=== PATIENT | female | born 1955 | race Caucasian/White ===

== ENCOUNTER → 2017-06-20 | Outpatient (REF) | payer OTHER ==
[~2017-06-20] MED LIST: ATOR80TA59 PO; ELIQ5TAB PO; LEVO75TA4 PO; LEXA1TAB2 PO; METH2.5TA PO; PREV1CAP PO
== END ==
LOC: M LAB REF 15:38
PROVIDERS: ATTEND Nurse Practitioner Adult Health
DX: R19.7 Diarrhea, unspecified (principal)

== ENCOUNTER → 2019-10-06 | Outpatient (CLI) | payer OTHER ==
[~2019-10-06] MED LIST changes: +ASPI81TA26 PO; +METH2.5T48 PO; -METH2.5TA PO; +METO1TAB87 PO
--- NOTE | 2019-10-06 17:39 | REP ---
RENAL ULTRASOUND: Real-time sonographic evaluation of the kidneys performed. The kidneys are normal in size but demonstrate cortical thinning and somewhat increased echotexture suggesting medical renal disease. Right kidney measures 10.1 x 4.6 x 4.4 cm and left kidney 10.5 x 4.5 x 4.8 cm. There is no hydronephrosis bilaterally. No renal mass or definite stone is seen. There are bilateral ureteral jets in the urinary bladder with Doppler color evaluation. IMPRESSION: Bilateral cortical thinning and probable medical renal disease. No hydronephrosis. Electronically Signed by Jeremy Morales MD 10/07/2019 09:58 A
== END ==
LOC: M RAD 16:51
PROVIDERS: ATTEND Internal Medicine Nephrology
DX: N18.3 Chronic kidney disease, stage 3 (moderate) (principal)

== ENCOUNTER → 2020-04-28 | Outpatient (REF) | payer MEDICARE, BC ==
[2020-04-28 15:04] LABS: AMORPHOUS SEDIMENT SMALL (NEGATIVE); APPEARANCE, URINE TURBID (CLEAR); BACTERIA, URINE AUTO NEGATIVE (NEGATIVE); BILIRUBIN, URINE AUTO NEGATIVE (NEGATIVE); BLOOD, URINE BLOOD 3+ (NEGATIVE); COLOR, URINE YELLOW (YELLOW); GLUCOSE, URINE (UA) AUTO NEGATIVE (NEGATIVE); KETONE, URINE AUTO NEGATIVE (NEGATIVE); LEUKOCYTE ESTERASE, URINE AUTO 2+ (NEGATIVE); MUCUS, URINE SMALL (NEGATIVE); NITRITE, URINE AUTO NEGATIVE (NEGATIVE); PROTEIN, URINE AUTO NEGATIVE (NEGATIVE); RBC, URINE AUTO 2 /HPF (0-3); SPECIFIC GRAVITY URINE AUTO 1.024 (1.002-1.035); SQUAMOUS EPITHELIAL CELL UR AU 7 /HPF (0-6); UROBILINOGEN, URINE AUTO 0.2 mg/dL (0.0-2.0); WBC, URINE AUTO 4 /HPF (0-3)
== END ==
LOC: M SMT 14:40
PROVIDERS: ATTEND Nurse Practitioner Women's Health
DX: R31.29 Other microscopic hematuria (principal)

== ENCOUNTER → 2020-05-20 | Outpatient (REF) | payer MEDICARE, BC, OTHER | LOC: M SMT 17:58 | PROVIDERS: ATTEND Urology | DX: N32.9 Bladder disorder, unspecified (principal) ==

== ENCOUNTER → 2021-06-14 | Outpatient (REF) | payer MEDICARE, OTHER, BC ==
[2021-06-15 12:58] LABS: PERCENT SATURATION 5.9 % (13.2-45.0)
== END ==
LOC: M LAB REF 11:49
PROVIDERS: ATTEND Internal Medicine
DX: D64.9 Anemia, unspecified (principal)

== ENCOUNTER → 2021-07-06 | Outpatient (REF) | payer MEDICARE, OTHER, BC | LOC: M LAB REF 09:55 | PROVIDERS: ATTEND Nurse Practitioner Adult Health | DX: D50.9 Iron deficiency anemia, unspecified (principal) ==

== ENCOUNTER → 2021-09-13 | Outpatient (CLI) | payer MEDICARE, OTHER ==
[~2021-09-13] MED LIST changes: +ISOVUE-370 76% 100ML VIAL ONE
--- NOTE | 2021-09-13 11:45 | REP ---
INDICATION: F/U PULMONARY NODULE. COMPARISON: 09/13/2020, 10/30/2018 CT TECHNIQUE: Pre and post contrast scanning through the chest with coronal and sagittal reconstructions provided. Bolus of 100 mL Isovue 370 given. FINDINGS: Lung doll show some minor apical fibrotic changes with some underlying COPD. Also some stable basilar peripheral fibrotic change. Pattern of few scattered small peripheral pulmonary nodules without calcification is again seen and unchanged there are no new nodules or further enlargement of any of the current nodules. There is no parenchymal mass, pleural based mass, calcified pleural plaque, effusion or acute infiltrate. The heart is not enlarged. No pericardial thickening or effusion. The left atrium is prominent. There are some calcifications in coronary arteries. Calcifications of the aortic valve plane and in the ascending, arch and descending aorta again seen, unchanged. Prominent central pulmonary arteries in the mediastinum and without filling defects, stable. No pathologic sized mediastinal, hilar, axillary or supraclavicular adenopathy. Upper abdominal structures unchanged. Some sinus lipomatosis, lobation upper lobes and adrenal glands visualized portions of liver, spleen and pancreas are unremarkable. No hiatal hernia. The bone windows show no new or acute findings. IMPRESSION: 1. Stable CT of the chest with multiple pulmonary nodules and no interval change in number or size nor new findings. The history of the malignancy of the throat puts this patient at higher risk for development of lung malignancy. Annual CT lung screening is warranted. <Electronically signed by Kennedy Hernandez > 09/13/21 [id number]
== END ==
LOC: M PLAIMG 09:28
PROVIDERS: ATTEND Nurse Practitioner Adult Health
DX: R91.1 Solitary pulmonary nodule (principal)
CPT/HCPCS: 71270; Q9967

== ENCOUNTER → 2021-10-04 | Outpatient (CLI) | payer MEDICARE, OTHER ==
[~2021-10-04] MED LIST changes: +FERR325T3 PO; -ISOVUE-370 76% 100ML VIAL ONE; +MAGN200T PO; +METO1TAB7 PO
== END ==
LOC: M LABSMTC 10:38
PROVIDERS: ATTEND Anesthesiology
DX: Z01.812 Encounter for preprocedural laboratory examination (principal); Z20.822 Contact with and (suspected) exposure to COVID-19

== ENCOUNTER 2021-10-09 09:15 | Day surgery (SDC) | payer MEDICARE, OTHER ==
[~2021-10-09] VITALS: Ht 165.1 cm; Wt 66.7 kg
[~2021-10-09 09:15] MED LIST changes: +NS 1,000 ML IV ONE
[2021-10-09] MEDS ORDERED: METOPROLOL SUCC *XL* 25MG TAB (TopROL *XL*) PO ONE (10:00)
[2021-10-09 10:03] VITALS: BP 190/105
[2021-10-09] MEDS ORDERED: propofoL 200 MG/20 ML VIAL As Ordered ONE ×2 (11:38→11:40)
[2021-10-09] MEDS ORDERED: LIDOCAINE 2% 100MG/5ML SDV (FOR ANES.) As Ordered ONE (11:40)
[2021-10-09 12:22] VITALS: BP 123/85
== END 2021-10-09 12:36 | disposition home or self-care (01) ==
LOC: M OPP 09:15
PROVIDERS: ATTEND Internal Medicine Gastroenterology
DX: K57.30 Diverticulosis of large intestine without perforation or abscess without bleeding (principal); K64.0 First degree hemorrhoids; D50.9 Iron deficiency anemia, unspecified; K22.89 Other specified disease of esophagus; K44.9 Diaphragmatic hernia without obstruction or gangrene; K31.89 Other diseases of stomach and duodenum; Z79.899 Other long term (current) drug therapy; Z95.3 Presence of xenogenic heart valve; F17.210 Nicotine dependence, cigarettes, uncomplicated; Z85.818 Personal history of malignant neoplasm of other sites of lip, oral cavity, and pharynx

== ENCOUNTER → 2022-03-21 | Outpatient (CLI) | payer MEDICARE, OTHER ==
[~2022-03-21] MED LIST changes: -NS 1,000 ML IV ONE
[2022-03-21 08:46] LABS: HEMATOCRIT 33.9 % (36.0-47.0); HEMOGLOBIN 10.7 g/dl (12.0-15.5); MEAN CORPUSCULAR HEMOGLOBIN 29.3 pg (27.0-33.0); MEAN CORPUSCULAR HGB CONC 31.6 g/dl (32.0-36.5); MEAN CORPUSCULAR VOLUME 92.9 fl (80.0-96.0); PLATELET COUNT, AUTOMATED 272 10^3/uL (150-450); RED BLOOD COUNT 3.65 10^6/uL (4.00-5.40); WHITE BLOOD COUNT 7.7 10^3/uL (4.0-10.0)
[2022-03-21 09:11] LABS: CALCIUM LEVEL 9.2 MG/DL (8.8-10.2); CREATININE FOR GFR 1.15 MG/DL (0.55-1.30); GLOMERULAR FILTRATION RATE 50.1 (>45); POTASSIUM SERUM 3.8 MEQ/L (3.5-5.1)
== END ==
LOC: M RAD 07:44
PROVIDERS: ATTEND Physician Assistant
DX: I50.9 Heart failure, unspecified (principal); R06.02 Shortness of breath

== ENCOUNTER → 2022-04-12 | Outpatient (REF) | payer MEDICARE, OTHER ==
[2022-04-12 18:39] LABS: PERCENT SATURATION 11.9 % (13.2-45.0)
== END ==
LOC: M LAB REF 17:09
PROVIDERS: ATTEND Internal Medicine Nephrology
DX: D50.9 Iron deficiency anemia, unspecified (principal)

== ENCOUNTER → 2022-07-11 | Outpatient (REF) | payer MEDICARE, OTHER ==
[2022-07-11 17:31] LABS: HEMATOCRIT 44.3 % (36.0-47.0)
[2022-07-11 18:16] LABS: PERCENT SATURATION 38.2 % (13.2-45.0)
== END ==
LOC: M LAB REF 16:16
PROVIDERS: ATTEND Nurse Practitioner Adult Health
DX: D50.9 Iron deficiency anemia, unspecified (principal)

== ENCOUNTER → 2022-08-14 | Outpatient (CLI) | payer MEDICARE, OTHER | LOC: M WUC 13:06 | PROVIDERS: ATTEND Nurse Practitioner Adult Health | DX: R06.02 Shortness of breath (principal) ==

== ENCOUNTER 2022-11-01 08:10 | Inpatient (IN) | payer MEDICARE, OTHER ==
[~2022-11-01] VITALS: Ht 162.6 cm; Wt 65.5 kg
[2022-11-01] MEDS ORDERED: CALC1CAP31 PO (08:24)
[2022-11-01] MEDS ORDERED: BUDE10.7 INH (08:24)
[2022-11-01] MEDS ORDERED: PRED20TA PO (08:24)
[2022-11-01] MEDS ORDERED: ALPR0.25 PO (08:24)
[2022-11-01] MEDS ORDERED: TORS20TA2 PO (08:24)
[2022-11-01] MEDS ORDERED: ALBU2.5V10 NEB (08:24)
[2022-11-01] MEDS: NICOTINE 7 MG/24 HR TRANSDERMAL TD SCH (09:00)
[2022-11-01] MEDS ORDERED: FUROSEMIDE 20MG/2ML VIAL IV ONE (09:40)
[2022-11-01 09:44] LABS: BASO # 0.1 10^3/uL (0.0-0.2); BASO % 0.4 % (0.0-1.0); EOS # 0.9 10^3/uL (0.0-0.5); EOS % 5.7 % (0.0-3.0); HEMATOCRIT 37.7 % (36.0-47.0); HEMOGLOBIN 11.8 g/dl (12.0-15.5); LYMPH # 2.5 10^3/uL (1.5-5.0); LYMPH % 15.8 % (24.0-44.0); MEAN CORPUSCULAR HEMOGLOBIN 28.3 pg (27.0-33.0); MEAN CORPUSCULAR HGB CONC 31.3 g/dl (32.0-36.5); MEAN CORPUSCULAR VOLUME 90.4 fl (80.0-96.0); MONO % 10.6 % (2.0-8.0); NEUTROPHILS # 10.7 10^3/uL (1.5-8.5); NEUTROPHILS % 66.6 % (36.0-66.0); PLATELET COUNT, AUTOMATED 198 10^3/uL (150-450); RED BLOOD COUNT 4.17 10^6/uL (4.00-5.40)
[2022-11-01 10:03] LABS: INR 1.09; PROTHROMBIN TIME 14.3 SECONDS (12.5-14.5)
[2022-11-01 10:13] LABS: CK-MB VALUE MASS 3.8 NG/ML (<3.6)
[2022-11-01 10:16] LABS: ALBUMIN 3.6 G/DL (3.2-5.2); BILIRUBIN,DIRECT 0.1 MG/DL (<0.4); BILIRUBIN,TOTAL 0.5 MG/DL (0.3-1.2); CREATININE FOR GFR 1.57 MG/DL (0.55-1.30); POTASSIUM SERUM 3.6 MMOL/L (3.5-5.1); TOTAL PROTEIN 6.3 G/DL (5.7-8.2)
[2022-11-01 10:17] LABS: RSV AMPLIFICATION NEGATIVE (NEGATIVE); THYROXINE (T4) 8.7 UG/DL (4.5-10.9)
[2022-11-01 10:18] LABS: THYROID STIMULATING HORMONE 1.641 uIU/ML (0.55-4.78)
[2022-11-01 10:19] LABS: MB/CK RELATIVE INDEX 2.99 (< OR =4)
[2022-11-01 10:39] LABS: MONO # 1.7 10^3/uL (0.0-0.8)
[2022-11-01] MEDS ORDERED: ISOVUE-370 76% 100ML VIAL As Ordered ONE (11:05)
[2022-11-01] MEDS ORDERED: methylPREDNISolone 125MG 2ML VIAL IV SCH (14:00)
[2022-11-01] MEDS ORDERED: ALBUTEROL 90 MCG/ACT 8GM HFA INHALER INH PRN (14:20)
[2022-11-01] MEDS ORDERED: ATOR40TA75 PO (14:29)
[2022-11-01] MEDS ORDERED: HOME MED LIST COMPLETE! XX SCH (14:30)
[2022-11-01] MEDS ORDERED: ALPRAZolam 0.25 MG TAB PO PRN (15:25)
[2022-11-01] MEDS ORDERED: MAGN400T2 PO (16:09)
[2022-11-01] MEDS: methylPREDNISolone 40MG 1ML VIAL IV SCH ×2 (16:36→21:24)
[2022-11-01] MEDS: MAGNESIUM OXIDE 400MG TAB (MAG-OX) PO SCH (16:36)
[2022-11-01] MEDS ORDERED: SODIUM CHLORIDE 0.9% 1000ML IV ONE (16:50)
[2022-11-01 18:15] VITALS: BP 119/63
[2022-11-01 20:00] VITALS: BP 123/73
[2022-11-01] MEDS: SYMBICORT 160/4.5MCG INHALER 6GM INH SCH (20:00)
[2022-11-01] MEDS: IPRATROPIUM 0.5MG/ALBUTEROL 2.5MG INH SOL UD 3ML (DUONEB) NEB SCH (20:00)
[2022-11-01] MEDS ORDERED: ATORVASTATIN 20 MG TAB PO SCH (21:00)
[2022-11-01] MEDS: OMEPRAZOLE 20MG CAP PO SCH (21:23)
[2022-11-01] MEDS: APIXABAN 5 MG TAB (ELIQUIS) PO SCH (21:24)
[2022-11-02] VITALS: BP 115/73
[2022-11-02] MEDS: IPRATROPIUM 0.5MG/ALBUTEROL 2.5MG INH SOL UD 3ML (DUONEB) NEB SCH ×2 (02:00→07:48)
[2022-11-02 04:00] VITALS: BP 110/69
[2022-11-02 05:31] LABS: BASO % 0.1 % (0.0-1.0); HEMATOCRIT 38.9 % (36.0-47.0); HEMOGLOBIN 12.1 g/dl (12.0-15.5); LYMPH # 0.7 10^3/uL (1.5-5.0); LYMPH % 4.4 % (24.0-44.0); MEAN CORPUSCULAR HEMOGLOBIN 27.8 pg (27.0-33.0); MEAN CORPUSCULAR HGB CONC 31.1 g/dl (32.0-36.5); MEAN CORPUSCULAR VOLUME 89.4 fl (80.0-96.0); MONO # 0.8 10^3/uL (0.0-0.8); MONO % 4.8 % (2.0-8.0); NEUTROPHILS % 89.8 % (36.0-66.0); PLATELET COUNT, AUTOMATED 209 10^3/uL (150-450); RED BLOOD COUNT 4.35 10^6/uL (4.00-5.40); WHITE BLOOD COUNT 15.5 10^3/uL (4.0-10.0)
[2022-11-02 05:48] LABS: MAGNESIUM LEVEL 2.1 MG/DL (1.8-2.4)
[2022-11-02 06:00] LABS: CALCIUM LEVEL 9.7 MG/DL (8.3-10.6); CREATININE FOR GFR 1.53 MG/DL (0.55-1.30); POTASSIUM SERUM 4.8 MMOL/L (3.5-5.1)
[2022-11-02] MEDS ORDERED: LEVOTHYROXINE 75MCG TABLET (0.075MG) PO SCH (06:00)
[2022-11-02] MEDS: methylPREDNISolone 40MG 1ML VIAL IV SCH (06:15)
[2022-11-02] MEDS: SYMBICORT 160/4.5MCG INHALER 6GM INH SCH ×2 (07:47→10:26)
[2022-11-02 08:00] VITALS: BP 114/71
[2022-11-02] MEDS ORDERED: TIOTROPIUM INHALER/CAPSULE (SPIRIVA) INH SCH (08:00)
[2022-11-02 08:11] VITALS: O2SAT 96
[2022-11-02] MEDS: OMEPRAZOLE 20MG CAP PO SCH (08:31)
[2022-11-02] MEDS: NICOTINE 7 MG/24 HR TRANSDERMAL TD SCH (08:31)
[2022-11-02] MEDS: MAGNESIUM OXIDE 400MG TAB (MAG-OX) PO SCH ×2 (08:32→08:36)
[2022-11-02] MEDS: APIXABAN 5 MG TAB (ELIQUIS) PO SCH (08:32)
[2022-11-02] MEDS ORDERED: ESCITALOPRAM OXALATE 10 MG TAB (LEXAPRO) PO SCH (09:00)
[2022-11-02] MEDS ORDERED: CALCITRIOL 0.25 MCG CAP (S0169) PO SCH (09:00)
[2022-11-02] MEDS ORDERED: TORSEMIDE 20 MG TAB PO SCH (09:00)
[2022-11-02] MEDS ORDERED: PRED20TA PO (10:15)
[2022-11-02] MEDS ORDERED: PRED10TA2 PO (10:15)
[2022-11-03] MEDS ORDERED: CALCITRIOL 0.25 MCG CAP (S0169) PO SCH (09:00)
== END 2022-11-02 11:54 | disposition home or self-care (01) | DRG 191 ==
LOC: M ED 08:10 → M ED INP 14:20 → ENRESERV 16:34 → M ICU 17:47
PROVIDERS: ADMIT Student in an Organized Health Care Education/Training Program; ATTEND Student in an Organized Health Care Education/Training Program
DX: J44.1 Chronic obstructive pulmonary disease with (acute) exacerbation (principal); I50.32 Chronic diastolic (congestive) heart failure; J84.112 Idiopathic pulmonary fibrosis; I08.0 Rheumatic disorders of both mitral and aortic valves; I27.81 Cor pulmonale (chronic); G47.33 Obstructive sleep apnea (adult) (pediatric); E78.5 Hyperlipidemia, unspecified; E03.9 Hypothyroidism, unspecified; N18.9 Chronic kidney disease, unspecified; K21.9 Gastro-esophageal reflux disease without esophagitis; Z86.73 Personal history of transient ischemic attack (TIA), and cerebral infarction without residual deficits; D50.9 Iron deficiency anemia, unspecified; C14.0 Malignant neoplasm of pharynx, unspecified; Z92.3 Personal history of irradiation; F32.A Depression, unspecified; F41.9 Anxiety disorder, unspecified; F17.210 Nicotine dependence, cigarettes, uncomplicated; Z79.01 Long term (current) use of anticoagulants; Z79.52 Long term (current) use of systemic steroids; Z79.899 Other long term (current) drug therapy; Z20.822 Contact with and (suspected) exposure to COVID-19; Z99.81 Dependence on supplemental oxygen; E11.22 Type 2 diabetes mellitus with diabetic chronic kidney disease; Z95.2 Presence of prosthetic heart valve

== ENCOUNTER → 2022-12-25 | Outpatient (CLI) | payer MEDICARE, OTHER ==
[~2022-12-25] MED LIST changes: +ALBU2.5V10 NEB; +ALPR0.25 PO; +ATOR40TA75 PO; +BUDE10.7 INH; +CALC1CAP31 PO; +MAGN400T2 PO; +PRED10TA2 PO; +PRED20TA PO; +TORS20TA2 PO
[2022-12-25 14:12] LABS: BASO # 0.1 10^3/uL (0.0-0.2); BASO % 1.1 % (0.0-1.0); EOS # 1.2 10^3/uL (0.0-0.5); EOS % 9.8 % (0.0-3.0); HEMATOCRIT 41.9 % (36.0-47.0); HEMOGLOBIN 12.4 g/dl (12.0-15.5); LYMPH # 2.1 10^3/uL (1.5-5.0); LYMPH % 17.5 % (24.0-44.0); MEAN CORPUSCULAR HEMOGLOBIN 25.4 pg (27.0-33.0); MEAN CORPUSCULAR HGB CONC 29.6 g/dl (32.0-36.5); MEAN CORPUSCULAR VOLUME 85.7 fl (80.0-96.0); MONO # 1.4 10^3/uL (0.0-0.8); MONO % 11.8 % (2.0-8.0); NEUTROPHILS % 59.4 % (36.0-66.0); PLATELET COUNT, AUTOMATED 184 10^3/uL (150-450); RED BLOOD COUNT 4.89 10^6/uL (4.00-5.40); WHITE BLOOD COUNT 11.8 10^3/uL (4.0-10.0)
[2022-12-25 14:38] LABS: CALCIUM LEVEL 9.2 MG/DL (8.3-10.6); CREATININE FOR GFR 1.65 MG/DL (0.55-1.30); GLOMERULAR FILTRATION RATE 32.9 (>45); POTASSIUM SERUM 3.8 MMOL/L (3.5-5.1)
== END ==
LOC: M LAB 12:22
PROVIDERS: ATTEND Internal Medicine Cardiovascular Disease
DX: R06.02 Shortness of breath (principal); D50.9 Iron deficiency anemia, unspecified

== ENCOUNTER → 2023-01-07 | Outpatient (CLI) | payer MEDICARE, OTHER | LOC: M WHC 13:16 | PROVIDERS: ATTEND Nurse Practitioner Adult Health | DX: N64.59 Other signs and symptoms in breast (principal) | CPT/HCPCS: 77066; G0279 ==